=== PATIENT | male | born 1985 | race Caucasian/White ===

== ENCOUNTER → 2018-08-17 | Day surgery (SDC) | payer MEDICARE ==
[~2018-08-17] MED LIST: CARDURA4 MG PO; CELEXA20 MG PO; COMPAZINE10 MG PO; CYCLOBENZAPRINE5 MG PO; DURAGESIC1 EACH TOP; EPOGEN20000 UNI2 SUBQ; HUMALOG100 UNIT/1 SUBQ; IMDUR 30 MG TAB30 M1 PO; IRON325 PO; LIDODERM1 EACH TOP; LIPITOR 20 MG T20 M1 PO; LOPRESSOR25 PO; MELATONIN3 MG PO; NEURONTIN 400400 M1 PO; NITROGLYCERIN0.4 MG SUBLING; ONDANSETRON HCL4 M2 PO; OXYCODONE HCL 55 MG PO; PRO-STAT LIQUID30 M1 PO; PROTONIX40 M1 PO; RENVELA800 MG PO; THEREMS-M1 EACH PO; TRAZODONE 150150 M1 PO; TYLENOL325 MG PO; VITAMIN D5000 UNIT PO; VITAMINC500 PO
--- NOTE | ~2018-08-17 | OP ---
[facility] [place] [address] [place] [address] OPERATIVE REPORT Name: ARIES FOFANA Room: [facility]#: [id number] Admission: 08/17/18 Attend Phys: Satish Bruner Discharge: Date of : 81 Report #: [id number] THIS REPORT FOR: //name// CC: Kalyan Bruner DATE OF SERVICE: 08/17/2018 PREOPERATIVE DIAGNOSIS: End-stage renal disease. POSTOPERATIVE DIAGNOSIS: End-stage renal disease. PROCEDURE: Removal of tunneled intraperitoneal catheter. SURGEON: Satish Bruner MD ANESTHESIA: General. ESTIMATED BLOOD LOSS: Minimal. SPECIMEN: None. DESCRIPTION OF PROCEDURE: After informed consent was obtained, the patient was brought to the operating room and placed supine. SCDs were placed and working, preoperative antibiotics were administered, general anesthesia was induced. The abdomen was prepped and draped in the usual sterile fashion. A 2.5 cm incision was made lateral to the exit site of the peritoneal catheter. Dissection was carried out deep to the exit site. The external cuff was identified. It was freed up with the electrocautery. I then dissected out further down to the fascia through the same incision. The internal cuff was freed up from the surrounding tissue also with cautery. The catheter then slid out very easily. The fascia was closed with a single [id number] 0 Vicryl. Skin was closed with 4-0 Monocryl in running subcuticular fashion. Sterile dressings were applied. COMPLICATIONS: None. DISPOSITION: The patient was taken to recovery in satisfactory condition. By: [id number] Bruner MD /nt
[2018-08-17 08:50] LABS: HEMATOCRIT 25.5 % (42.0-52.0); HEMOGLOBIN 8.1 gm/dL (14.0-18.0); MCH 29.5 pg (26.0-34.0); MCHC 31.8 g/dL (28.0-37.0); MPV 7.6 fl. (7.2-11.1); RBC 2.74 mil/uL (4.50-6.00); RDW-CV 17.4 % (10.5-14.5); WBC 3.7 thou/uL (4.0-11.0)
[2018-08-17 09:02] LABS: ALBUMIN 2.3 g/dL (3.4-5.0); CALCIUM 10.5 mg/dL (8.5-10.1); CREATININE 4.7 mg/dL (0.6-1.3); POTASSIUM 3.9 mmol/L (3.5-5.1); TOTAL BILIRUBIN 0.5 mg/dL (<0.1-1.0); TOTAL PROTEIN 8.4 g/dL (6.4-8.2)
--- NOTE | 2018-08-17 13:18 | EKG ---
[place] [address] ELECTROCARDIOGRAM REPORT Name: ARIES FOFANA Room: [facility]#: [id number] Admission: 08/17/18 Attend Phys: Satish Bruner Discharge: Date of : 81 Report #: [id number] THIS REPORT FOR: //name// [facility] Test Date: 2018-08-17 Test Time: 08:38:47 Pat Name: ARIES FOFANA Department: Room: Gender: M Acute Care Occupational Therapist: : 1985 Requested By: Johnnie Sanchez Order Number: [id number] Juan MD: Martín Tucker Measurements Intervals Apollo Rate: 68 P: 45 MO: 170 QRS: 23 QRSD: 98 T: 11 QT: 453 QTc: 482 Interpretive Statements Sinus rhythm Nonspecific T-wave flattening No previous ECG available for comparison Electronically Signed On 08-17-2018 13:18:28 CDT by Martín Tucker [email or web address] <ELECTRONICALLY SIGNED> By: Martín Tucker MD, [facility] 08/17/18 1318 0838 7 Martín Tucker MD, FACC /EPI
== END | disposition home or self-care (01) ==
LOC: M.SUR 07:52
PROVIDERS: Surgery
DX: Z49.02 Encounter for fitting and adjustment of peritoneal dialysis catheter (principal); N18.6 End stage renal disease; Z88.8 Allergy status to other drugs, medicaments and biological substances; Z79.899 Other long term (current) drug therapy